=== PATIENT | male | born 1975 | race Two or more races ===

== ENCOUNTER 2023-04-02 18:37 | Emergency (ER) | payer OTHER ==
[~2023-04-02] VITALS: Ht 182.9 cm; Wt 87.1 kg
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
--- NOTE | 2023-04-02 18:46 | NUR ---
TIMO ESTABLISHED L FA 20G.
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
[2023-04-02] MEDS ORDERED: ONDANSETRON HCL/PF 4 MG/2 ML VIAL ONE (18:53)
[2023-04-02] MEDS ORDERED: ONDANSETRON HCL/PF 4 MG/2 ML VIAL IVP ONE (19:00)
--- NOTE | 2023-04-02 19:05 | NUR ---
IV removed. Catheter intact and site benign. Pressure and 4x4 applied to site. No bleeding noted.
[2023-04-02 19:07] VITALS: BP 141/89
--- NOTE | 2023-04-02 19:07 | NUR ---
Patient discharged to home in stable condition. Written and verbal after care instructions given. Patient verbalizes understanding of instruction.
== END 2023-04-02 19:07 | disposition home or self-care (01) ==
LOC: ER 18:44
DX: T18.198A Other foreign object in esophagus causing other injury, initial encounter (principal); F32.A Depression, unspecified; F41.9 Anxiety disorder, unspecified; X58.XXXA Exposure to other specified factors, initial encounter; Y93.89 Activity, other specified; Y92.89 Other specified places as the place of occurrence of the external cause; Y99.8 Other external cause status
CPT/HCPCS: 99283; 96374; J2405